=== PATIENT | male | born 1985 | race Caucasian/White ===

== ENCOUNTER 2020-02-05 17:51 | Emergency (ER) | payer MEDICAID, SELFPAY ==
[2020-02-05 17:52] VITALS: BP 141/87; PULSE 73; RESP 20; TEMP 36.6; O2SAT 100; BMI 32.8
--- NOTE | 2020-02-05 18:02 | XR_ITS ---
PROCEDURE: XR RIBS LT MIN 3V W CXR1V Patient Age:34Y CLINICAL INDICATION: PAIN IN RIBS AFTER A COUGH COMPARISON: SHOULDCMLT XR shoulder LT min 2V from 11/16/2018 FINDINGS: A frontal view of the chest shows lungs to be clear with no focal pneumonia. No pleural effusion; no pneumothorax. . , Multiple views of the left ribs were obtained. No definitive acute rib fracture or findings. On one oblique views there is some slight variation density with question of subtle relative lucency the at posterior lateral 9th rib, but I believe on further review this is due to variable density in the overlapping soft tissues.. No convincing rib fracture here or elsewhere. If there should be focal pain in this area may want to consider follow-up. . IMPRESSION: No rib fracture seen. No discrete rib fracture evident Lungs clear, no active disease no pneumothorax Dictated by: Kamran Preston MD 02/05/2020 20:43 Electronically signed by Kamran Preston MD in [place] 02/05/2020 20:43
--- NOTE | 2020-02-05 18:35 | HMH.EDUTC ---
[facility] [place] Disposition Clinical Impression: Rib pain on left side Disposition: Home, Self-Care Condition on Discharge: Good Instructions: DI for Chronic Pain -- Adult, Naproxen Additional Instructions: *Naproxen as prescribed with meal as needed for pain/inflammation *Not additional anti-inflammatory like motrin, aleve, advil with the above amount of Naproxen You can still take Tylenol every 4 hours as needed if you need something else for pain *Ice 20 minutes every 2 hours for the first 48 hours after the initial injury followed by moist heat every 20 minutes 3-4 times a day to affected area *Keep this area active, no movement leads to more stiffness, However take it easy and avoid heavy lifting pushing or pulling *Follow up with you family doctor if no improvement for further treatment Return if needed, you may call back to [facility] tomorrow for the official reading of your xray Straight to ER if any life threatening symptoms Prescriptions: Naproxen [Naproxen 500mg tab] 500 mg PO BID PRN #10 tab PRN Reason: Moderate Pain Transmission Status: Pending to [id number] Referrals: Dora Griffin [Primary Care Provider] - As needed Time of Disposition: 19:13 Medical Decision Making - Javier Inquiry Pt receiving controlled substance: No Javier was queried for this patient: No Vital Signs: 02/05/20 17:52 Temperature 97.9 F Temperature Source Oral Pulse Rate [Right] 73 Respiratory Rate 20 Blood Pressure [Right Arm] 141/87 H Blood Pressure Mean [Right Arm] 105 02 Sat by Pulse Oximetry 100 Orders (Tests/Meds): ORDERS Category Date Time Status XR ribs LT min 3V w CXR1V Stat Exams 02/05/20 18:02 Taken - Radiology Data #1 Image(s): Chest (left ribs) Preliminary Findings: Normal/NAD, No Fracture Seen Discussed with Dr Deutsch no acute finding - Reevaluation(s) Time: 19:15 Reevaluation #1: Patient states that he has taken Naproxen before without reactions or complications with his other medications [facility] HPI - General Stated complaint: tWISTED AND PULLED BACK Time Seen by Provider: 02/05/20 18:36 Mode of Arrival: Ambulatory Limitations: No Limitations Description of Symptoms (Recalled from Triage Doc. by RN): Pain in left side of ribs after coughing earlier today. HEENT Symptoms (Recalled from RN notes): No Resp Symptoms (Recalled from RN notes): No Skin Symptoms (Recalled from RN notes): No MS Symptoms (Recalled from RN notes): Yes Functional Status (Recalled from RN notes): na - History of Present Illness Provider Complaint: Patient state that he was coughing earlier today and felt a pop in his left ribs States that ever since he has been having pain and discomfort when he moves certain ways or takes a deep breath so he came in to get it checked - Related Data Home Medications Medication Instructions Recorded Confirmed PARoxetine HCL [Paxil 20mg Tablet] 20 mg PO DAILY 11/16/18 07/19/19 Previous Rx's Medication Instructions Recorded Oseltamivir Phosphate [Tamiflu 75 mg PO BID #10 cap 07/19/19 75mg Capsule] Naproxen [Naproxen 500mg tab] 500 mg PO BID PRN #10 tab 02/05/20 Allergies Allergy/AdvReac Type Severity Reaction Status Date / Time No Known Allergies Allergy Verified 11/16/18 07:30 - Worker's Comp Is this a Worker's Comp case?: No [facility] History - Hepatitis A Screen Drug use history?: No High risk sexual behaviors?: No History of sexually transmitted infection?: No Currently employed?: No Childcare worker?: No Do you have indoor plumbing?: Yes Do you have electricity?: Yes Attestation statement:: This patient has been screened for Hepatitis A risk factors. I have reviewed the patient's past medical history: Yes - Social History Smoking Status: Current every day smoker Tobacco Type: cigarettes # Packs/Day (cigarettes): 1 Alcohol Intake: never Occupational Status: employed ROS Obtained: Yes All systems reviewed & no additional complain
[2020-02-05 19:16] VITALS: BP 140/87; PULSE 70; RESP 20; TEMP 36.8; O2SAT 98
== END 2020-02-05 19:17 | disposition home or self-care (01) ==
PROVIDERS: Emergency Provider Nurse Practitioner; PCP Physician Assistant
DX: R07.89 Other chest pain (principal); F17.210 Nicotine dependence, cigarettes, uncomplicated
CPT/HCPCS: 71101; 99201; 99202

== ENCOUNTER 2020-10-09 17:45 | Emergency (ER) | payer MEDICAID, SELFPAY ==
[2020-10-09 18:20] VITALS: BP 141/91; PULSE 78; RESP 18; TEMP 36.8; O2SAT 99; BMI 33.2
--- NOTE | 2020-10-09 18:58 | HMH.EDUTC ---
[facility] [place] Disposition Clinical Impression: Exposure to COVID-19 virus Disposition: Home, Self-Care Condition on Discharge: Good Instructions: DI for COVID-19 (Suspected or Confirmed ), Coronavirus Disease 2019, Preventing the Spread of Coronavirus Discharge Instructions Additional Instructions: *Monitor Temp, Over the counter Motrin or Tylenol as directed/as needed Tylenol every 4 hours and Motrin every 6 hours (as long as your family doctor has told you that you can take it) for fever or pain. and straight to ER if unable to lower temp less than 101.0 after medication given Follow up IMMEDIATELY for new or worsening symptoms or no Noticeable improvement over the next 48-72 hours. 911 for difficulty breathing or swallowing You were tested for today for COVID19 your test result should be back in the next 24-48 hours, you may call to the [facility] to see if your test results are back in the next 48 hours [phone] [facility] hours are 9am-9pm You was given a handout with instructions for Self Quarantine and Self isolation for while you wait on test results and what to do if they are positive If you are positive the Health Dept will be contacting you also Referrals: Dora Griffin [Primary Care Provider] - As needed Forms: Work/School Release Time of Disposition: 18:59 Medical Decision Making - Javier Inquiry Pt receiving controlled substance: No Javier was queried for this patient: No Vital Signs: 10/09/20 18:20 Temperature 98.2 F Temperature Source Oral Pulse Rate [Right Brachial] 78 Respiratory Rate 18 Blood Pressure [Right Arm] 141/91 H Blood Pressure Mean [Right Arm] 107 Blood Pressure Source [Right Arm] Automatic Cuff Blood Pressure Position [Right Arm] Sitting 02 Sat by Pulse Oximetry 99 Oxygen Delivery Method Room Air Orders (Tests/Meds): ORDERS Category Date Time Status Covid-19 Nasal PCR Sendout P&C Stat Lab 10/09/20 18:[address] [facility] HPI - General Stated complaint: covid test Time Seen by Provider: 10/09/20 18:58 Mode of Arrival: Ambulatory Source of Information: Patient Limitations: No Limitations Description of Symptoms (Recalled from Triage Doc. by RN): COVID TEST D/T EXPOSURE. DENIES SYMPTOMS HEENT Symptoms (Recalled from RN notes): No Resp Symptoms (Recalled from RN notes): No Skin Symptoms (Recalled from RN notes): No MS Symptoms (Recalled from RN notes): No Functional Status (Recalled from RN notes): WNL - History of Present Illness Provider Complaint: Patient states that he was recently around someone that has tested positive for COVID State that he is not having any symptoms but needed to get tested - Related Data Allergies Allergy/AdvReac Type Severity Reaction Status Date / Time No Known Allergies Allergy Verified 11/16/18 07:30 - Worker's Comp Is this a Worker's Comp case?: No [facility] History - Hepatitis A Screen Drug use history?: No High risk sexual behaviors?: No History of sexually transmitted infection?: No Currently employed?: No Childcare worker?: No Do you have indoor plumbing?: Yes Do you have electricity?: Yes Attestation statement:: This patient has been screened for Hepatitis A risk factors. I have reviewed the patient's past medical history: Yes - Social History Smoking Status: Current every day smoker Tobacco Type: cigarettes # Packs/Day (cigarettes): 1 Alcohol Intake: never Occupational Status: employed ROS Obtained: Yes All systems reviewed & no additional complaints, Yes Systems reviewed as appropriate & no additional complaints - Constitutional Constitutional: Reports system reviewed and no additional complaints, except as docu, Denies body ache, Denies chills, Denies fever(s), Denies headache(s) - ENT Ears, Nose, Mouth, and Throat: Reports system reviewed and no additional complaints, except as docu - Cardiovascular Cardiovascular: Reports system reviewed and no additional complaints, except as docu - Respiratory Respiratory: Repor
[2020-10-09 19:04] VITALS: BP 141/91; PULSE 78; RESP 18; TEMP 36.8; O2SAT 99
[2020-10-11 10:01] LABS: Covid-19 Nasal PCR Sendout P&C Negative
== END 2020-10-09 19:07 | disposition home or self-care (01) ==
PROVIDERS: Emergency Provider Nurse Practitioner; PCP Physician Assistant
DX: Z20.822 Contact with and (suspected) exposure to COVID-19 (principal); F17.210 Nicotine dependence, cigarettes, uncomplicated
CPT/HCPCS: 99202; G0463; U0004

== ENCOUNTER 2021-05-21 18:23 | Emergency (ER) | payer MEDICAID, SELFPAY ==
[2021-05-21 19:00] VITALS: BP 134/88; PULSE 71; RESP 20; TEMP 37; O2SAT 100; BMI 32.8
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
[2021-05-21 20:05] VITALS: BP 134/88; PULSE 71; RESP 20; TEMP 37; O2SAT 100
== END 2021-05-21 20:16 | disposition home or self-care (01) ==
PROVIDERS: Emergency Provider Nurse Practitioner; PCP Physician Assistant
DX: L03.116 Cellulitis of left lower limb (principal); T24.232A Burn of second degree of left lower leg, initial encounter; X17.XXXA Contact with hot engines, machinery and tools, initial encounter
CPT/HCPCS: 99202; G0463

== ENCOUNTER 2022-08-19 17:13 | Emergency (ER) | payer MEDICAID, SELFPAY ==
--- NOTE | 2022-08-19 18:41 | EXP.UTC ---
Discharge Plan Prescriptions Prescriptions: No Action sulfamethoxazole-trimethoprim 1 EACH tablet 1 each PO BID 5 Days Qty: 10 0RF cephalexin 500 MG capsule 500 mg PO BID 5 Days Qty: 10 0RF Referrals Follow up/Referrals: Rupa Posadas APRN [Primary Care Provider] - See instructions Discharge ED Provider: Edgar Pastrana [facility] [place] General Stated complaint: Body aches,chilles,ROBISON Time Seen by Provider: 08/19/22 18:41 Related Data Previous Rx's Medication Instructions Recorded cephalexin 500 mg capsule 500 mg PO BID 5 days #10 caps 05/21/21 sulfamethoxazole 800 1 each PO BID 5 days #10 tabs 05/21/21 mg-trimethoprim 160 mg tablet Allergies Allergy/AdvReac Type Severity Reaction Status Date / Time No Known Allergies Allergy Verified 11/16/18 07:30 [facility] Social History Smoking Status: Current every day smoker tobacco type: cigarettes packs per day: 1 alcohol intake: never current occupational status: employed Travel in the last 8 weeks: None
[2022-08-19 18:55] VITALS: BP 0/0; PULSE 0; RESP 0; TEMP -17.7; TEMP 0
== END 2022-08-19 18:56 | disposition left against medical advice (07) ==
PROVIDERS: Emergency Provider Nurse Practitioner Family; PCP Nurse Practitioner Family
DX: M79.10 Myalgia, unspecified site (principal); R51.9 Headache, unspecified; F17.210 Nicotine dependence, cigarettes, uncomplicated; Z79.1 Long term (current) use of non-steroidal anti-inflammatories (NSAID)
CPT/HCPCS: 99213; G0463

== ENCOUNTER → 2022-10-28 07:34 | Outpatient (CLI) | payer MEDICAID, SELFPAY ==
[2022-10-28 07:49] LABS: Basophils # 0.1 K/mm3 (0-0.2); Basophils % 1.2 % (0.1-2.0); Eosinophils # 0.1 K/mm3 (0.0-0.4); Eosinophils % 1.5 % (0.1-12.0); Hematocrit 47.2 % (42.0-52.0); Lymphocytes # 2.2 K/mm3 (0.7-4.5); Lymphocytes % 35.4 % (10-50); Mean Corpuscular Hemoglobin 32.1 pg (27.0-31.2); Mean Corpuscular Volume 94.6 fl (80-94); Mean Platelet Volume 7.9 fl (7.4-10.4); Monocytes # 0.4 K/mm3 (0.1-1.0); Monocytes % 6.5 % (1.7-9.3); Neutrophils # 3.4 K/mm3 (1.8-7.8); Neutrophils % 55.4 % (37.0-80.0); Platelet Count 214 K/mm3 (142-424); Red Blood Count 4.99 M/mm3 (4.60-6.20); Red Cell Distribution Width 12.1 % (11.5-17.5); White Blood Count 6.2 K/mm3 (4.8-10.8)
[2022-10-28 08:08] LABS: Hemoglobin A1C 5.8 % (4.0-6.0)
[2022-10-28 09:02] LABS: Alanine Aminotransferase 27 U/L (12-78); Albumin Level 4.5 g/dl (3.5-5.0); Albumin/Globulin Ratio 2.1 (1.1-1.8); Alkaline Phosphatase 61 U/L (38-126); Anion Gap 8.3 mEq/L (5-15); Aspartate Amino Transferase 30 U/L (17-59); Bilirubin,Total 0.4 mg/dl (0.2-1.3); Blood Urea Nitrogen 17 mg/dl (9-20); Calcium 9.1 mg/dl (8.4-10.2); Carbon Dioxide 27 mmol/L (22.0-30.0); Chloride 109 mmol/L (98-107); Chol/HDL Ratio 2.6 (1-3.5); Cholesterol 191 mg/dl (140-200); Estimated Glomerular Filt Rate 95 ml/min (>60); GFR (African American) 115 ML/MIN (>60); Globulin 2.1 g/dL (1.3-3.2); Glucose 101 mg/dl (74-100); HDL Cholesterol 74 mg/dl (40-60); Potassium 4.3 mmoL/L (3.5-5.1); Sodium 140 mmol/L (136-145); Total Protein,Serum 6.6 g/dl (6.3-8.2); Triglycerides 67 mg/dl (30-150); VLDL Cholesterol 13 mg/dL (0-40)
[2022-10-28 09:14] LABS: Direct LDL Cholesterol 96.26 mg/dL (100-129)
[2022-10-28 09:19] LABS: Free T4 (Free Thyroxine) 0.74 ng/dl (0.78-2.19)
[2022-10-28 09:33] LABS: Thyroid Stimulating Hormone 2.12 uIU/mL (0.465-4.68)
== END ==
LOC: LAB 07:35
PROVIDERS: PCP Nurse Practitioner Family; Visit Provider Nurse Practitioner Family
DX: B35.3 Tinea pedis (principal); Z13.228 Encounter for screening for other metabolic disorders; Z13.6 Encounter for screening for cardiovascular disorders
CPT/HCPCS: 36415; 80053; 80061; 83036; 84439; 84443; 85025

== ENCOUNTER 2022-11-20 13:33 | Emergency (ER) | payer MEDICAID, SELFPAY ==
[2022-11-20 13:34] VITALS: BP 144/80; PULSE 68; RESP 17; TEMP 36.8; O2SAT 99; BMI 31.0
[2022-11-20 13:58] VITALS: BP 144/80; PULSE 68; RESP 17; TEMP 36.8; O2SAT 99; BMI 31.0
[2022-11-20 14:05] LABS: Apearance,Urine Clear (Clear); Bilirubin,Urine Negative (Negative); Blood, Urine Negative (Negative); Color,Urine Yellow (Yellow); Glucose,Urine (UA) Negative (Negative); Ketones,Urine Negative (Negative); Protein,Urine Negative (Negative); UTC Leukocyte Esterase,Urine Negative (Negative); UTC Nitrate,Urine Negative (Negative); Urobilinogen,Urine 2 EU/dl (0.2)
--- NOTE | 2022-11-20 14:15 | EXP.UTC ---
Discharge Plan Disposition Patient Disposition: Home, Self-Care Condition: Good Prescriptions Prescriptions: New ibuprofen [IBU] 800 mg tablet 800 mg PO Q8HP PRN (Reason: Moderate Pain) Qty: 30 0RF cyclobenzaprine 10 mg Tablet 10 mg PO BID PRN (Reason: Muscle Spasm) Qty: 20 0RF Referrals Follow up/Referrals: Rupa Posadas APRN [Primary Care Provider] - See instructions Activity Restrictions/Add. Instructions Additional Instructions/Restrictions: Go home and rest. It would be best if you rested tomorrow too. No heavy lifting. No twisting for the next few days. Take the oral medications as directed. The muscle relaxer (cyclobenzaprine--Flexeril) will make you drowsy, so don't drive or operate heavy machinery after taking it. Follow up with your regular doctor. GO TO THE ER FOR ANY WORSENING SYMPTOMS OR CONCERN, ESPECIALLY BOWEL OR BLADDER ISSUES, SADDLE AREA NUMBNESS, FEVER, ETC If your symptoms worsen, please return and go through the ER. You will probably need a ct scan to diagnose further. We cannot do ct scan through the urgent care. Clinical Impressions Clinical Impression: Low back pain Stand Alone Forms Stand Alone Forms: Work/School Release Instructions Patient Instructions: DI for Low Back Pain, Cyclobenzaprine Discharge ED Provider: Edgar Pastrana [facility] General Stated complaint: Kidney pressure/pain Mode of Arrival: Ambulatory Source of Information: Patient Limitations: No Limitations Time Seen by Provider: 11/20/22 14:07 Description of Symptoms (Recalled from Triage Doc. by RN): pressure in kidney area HEENT Symptoms (Recalled from RN notes): No Resp Symptoms (Recalled from RN notes): No Skin Symptoms (Recalled from RN notes): No MS Symptoms (Recalled from RN notes): No Functional Status (Recalled from RN notes): n/a History of Present Illness Provider Complaint: He reports that he has had pressure in his right lower back for the past 1 day. He denies pain, but he states that it is uncomfortable. He denies any urinary symptoms. He denies any fever. He denies any known injury. Related Data Previous Rx's Medication Instructions Recorded cyclobenzaprine 10 mg tablet 10 mg PO BID PRN Muscle Spasm #20 11/20/22 tabs ibuprofen 800 mg tablet (IBU) 800 mg PO Q8HP PRN Moderate Pain 03/02/23 #30 tabs Allergies Allergy/AdvReac Type Severity Reaction Status Date / Time No Known Allergies Allergy Verified 11/20/22 14:01 Worker's Comp Is this a Worker's Comp case?: No [facility] Disclaimer: The information contained in this section may have been updated after the patient was seen, as this information can be updated by other users. Social History Smoking Status: Current every day smoker tobacco type: cigarettes packs per day: 1 alcohol intake: never current occupational status: employed Travel in the last 8 weeks: None ROS Obtained: Yes All systems reviewed & no additional complaints except as documented Constitutional Constitutional: Denies chills and Denies fever(s) Eyes Eyes: Denies eye discharge ENT Ears, Nose, Mouth, and Throat: Denies dizziness, Denies otalgia and Denies sore throat Cardiovascular Cardiovascular: Denies chest pain Respiratory Respiratory: Denies shortness of breath, Denies chest congestion, Denies cough, Denies stridor and Denies wheezing Gastrointestinal Gastrointestingal: Denies abdominal pain, constipation, nausea or vomiting Genitourinary Male Genitourinary: Denies difficulty urinating, Denies hematuria and Denies oliguria Musculoskeletal Musculoskeletal: Reports system reviewed and no additional complaints, except as documented and Denies arthralgias Integumentary/Breasts Skin/Breast: Denies rash Neurologic Neurologic: Denies dizziness and Denies paresthesias Allergic/Immunologic Allergic/Immunologic: Denies wheezing Physical Exam General General appearance: alert
[2022-11-20 14:58] VITALS: BP 144/80; PULSE 68; RESP 17; TEMP 36.8; O2SAT 99
== END 2022-11-20 14:58 | disposition home or self-care (01) ==
LOC: ER 13:48 → UTC 13:49
PROVIDERS: Emergency Provider Nurse Practitioner Family; PCP Nurse Practitioner Family
DX: M54.50 Low back pain, unspecified (principal)
CPT/HCPCS: 81003; 99212; 99213; G0463